=== PATIENT | male | born 1950 | race Caucasian/White ===

== ENCOUNTER 2021-12-21 20:26 | Observation (INO) | payer MEDICARE, OTHER, SELFPAY ==
[2021-12-21] VITALS (13 sets, daily range): BP systolic 120–154; BP diastolic 69–88; PULSE 55–74; RESP 18–27; TEMP 36.2; O2SAT 92–95; BMI 27.3
--- NOTE | 2021-12-21 20:36 | DI.RAD.S_ITS ---
PROCEDURE: XR RIBS RT MIN 3V W CXR 1V INDICATIONS: right lateral rib pain TECHNIQUE: 3 views of the right ribs were acquired, along with a single view chest. COMPARISON: None. FINDINGS: Surgical changes and devices: None. Bones and chest wall: No dislocations but there are multiple right lateral acute appearing posterolateral rib fractures, in addition to a scapular fracture previously identified on the right.. No suspicious bony lesions. Overlying soft tissues appear unremarkable. Lungs and pleura: No pleural effusions or pneumothorax. Lungs appear clear. Mediastinum: Mediastinal contours appear normal. Heart size is normal. IMPRESSION: Reduced inspiration on the right associated with acute chest wall trauma to include multiple adjacent right lateral and posterolateral rib fractures and also a previously documented acute scapular fracture that extends into the glenoid base. No pneumothorax associated. Dictated by: Khris Trimble M.D. on 12/21/2021 at 21:02 Approved by: Khris Trimble M.D. on 12/21/2021 at 21:03
--- NOTE | 2021-12-21 20:36 | DI.RAD.S_ITS ---
PROCEDURE: XR SHOULDER RT MIN 2V INDICATIONS: trauma, pain, decreased ROM TECHNIQUE: 2 views of the shoulder were acquired. COMPARISON: None. FINDINGS: Bones: No dislocations. There is a scapular body fracture that extends into the base of the glenoid. This is mildly displaced. It is also mildly comminuted. No suspicious bony lesions. Visualized ribs appear intact. Soft tissues: No suspicious soft tissue calcifications. IMPRESSION: Right scapular fracture, at the midbody and including extension into the base of the glenoid with only a mild degree of malalignment abnormality associated but there is mild comminution. Dictated by: Khris Trimble M.D. on 12/21/2021 at 21:00 Approved by: Khris Trimble M.D. on 12/21/2021 at 21:01
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
[2021-12-21] MEDS: TET,DIPH,PERTUSS(ACELL),VAC/PF 0.5 ML SYRINGE IM (21:09)
--- NOTE | 2021-12-21 21:14 | PC.NURSE ---
patient complains of pain in his right shoulder and chest. He states that the doctors don't give him medication that helps for pain. He was asked if He'd had been drinking today and he said yes. I told him that I would ask the doctor what we could give him for pain.
--- NOTE | 2021-12-21 21:19 | DI.CT.S_ITS ---
PROCEDURE: CT CHEST ABD PEL W CON INDICATIONS: trauma TECHNIQUE: After the administration of intravenous contrast, 5 mm thick sections acquired from the lung apices to the symphysis. 5 mm coronal and sagittal reformats were performed, with additional 7 mm MIP reformats through the lungs. For radiation dose reduction, the following was used: automated exposure control, adjustment of mA and/or kV according to patient size. COMPARISON: [facility], CR, XR RIBS RT MIN 3V W CXR 1V, 12/21/2021, 20:40. FINDINGS: Image quality: Excellent. CHEST: Lungs and pleura: No acute airspace opacities on the left but there is a mild degree of pulmonary contusion at the right posterior lung base. The patient has multiple associated right-sided lateral and posterolateral rib fractures. No significant pleural effusions or pneumothorax. Central and peripheral airways appear patent and normal in caliber. Mediastinum: Heart size is normal. No pericardial effusion. No mediastinal or hilar adenopathy by size criteria. Thoracic aorta and central pulmonary arteries are normal in size. Esophagus is normal in caliber. No hiatal hernia. Chest wall: No axillary or supraclavicular adenopathy by size criteria. Thyroid gland appears normal where well seen. Right-sided mid and lower chest lateral and posterolateral rib fractures were also previously well visualized by plain film imaging, and a fracture through the right scapular body and extending into the base of the right glenoid is again noted. ABDOMEN: Solid organs: Liver is mildly enlarged in size at 19.1 cm craniocaudad and shows a fatty infiltrated appearance without focal mass or evidence traumatic hepatic contusion or laceration. Gallbladder appears normal . Biliary system is non dilated. Pancreas enhances normally. Spleen is normal in size and enhancement. No adrenal nodules. Kidneys demonstrate normal size and enhancement, without hydronephrosis. Peritoneum and bowel: Bowel loops demonstrate normal wall thickness and caliber. No free fluid or air. Nodes and vessels: No retroperitoneal or mesenteric adenopathy by size criteria. Aorta and inferior vena cava are normal in size. Miscellaneous: No ventral hernias. PELVIS: Genitourinary: Bladder wall thickness is normal. Miscellaneous: No inguinal hernias or adenopathy. Bones: No suspicious bony lesions. No vertebral body compression fractures. IMPRESSION: Right-sided rib and scapular fractures as discussed no spine injury found. No pneumothorax found. Note is made of fatty infiltration prominent throughout the liver which is mildly enlarged. No visceral trauma seen. Dictated by: Khris Trimble M.D. on 12/21/2021 at 22:16 Approved by: Khris Trimble M.D. on 12/21/2021 at 22:21
[2021-12-21] MEDS: ONDANSETRON 4 MG/2 ML INJ IV (21:33)
[2021-12-21] MEDS: HYDROMORPHONE 0.5 MG INJ IV (21:33)
[2021-12-21 21:35] LABS: Add Manual Diff / Slide Review NO; Basophils Absolute Auto 0 /uL (0-100); Basophils Percent Auto 0.5 % (0-2); Eosinophils Absolute Auto 0 /uL (0-450); Eosinophils Percent Auto 0.6 % (2-4); Hematocrit 40.8 % (41-53); Hemoglobin 14.1 g/dL (13.5-17.5); Lymphocytes Absolute Auto 1100 /uL (1100-4500); Lymphocytes Percent Auto 14.6 % (25-40); Mean Corpuscular HGB Conc 34.5 % (30-36); Mean Corpuscular Hemoglobin 30.5 PG (26-34); Mean Corpuscular Volume 88.5 fL (80-100); Monocytes Absolute Auto 500 /uL (0-900); Monocytes Percent Auto 6.5 % (3-14); Neutrophils Absolute Auto 5600 /uL (1500-7000); Neutrophils Percent Auto 77.8 % (50-75); Platelet Count 230 X10^3/uL (150-400); Red Blood Cell Count 4.61 X10^6/uL (4.5-5.9); Red Cell Distribution Width 13.6 % (11.6-14.8); White Blood Cell Count 7.2 X10^3/uL (4.5-11.0)
[2021-12-21 21:58] LABS: Blood Urea Nitrogen 13 mg/dL (9-20); Calcium 8.4 mg/dL (8.4-10.2); Carbon Dioxide 24 mmol/L (22-32); Chloride 110 mmol/L (98-107); Estimated Glomerular Filt Rate > 60 mL/min (>60); Glucose 118 mg/dL (80-110); HEMOLYSIS 15 (0-50); Potassium 3.5 mmol/L (3.4-5.1); Sodium 143 mmol/L (137-145)
--- NOTE | 2021-12-21 23:03 | DI.CT.S_ITS ---
PROCEDURE: CT UE RT WO CON INDICATIONS: per ortho TECHNIQUE: Noncontrast 1-1.5 mm thick sections acquired from the acromioclavicular joint to the inferior scapula, with coronal and sagittal reformatting. COMPARISON: [facility], CR, XR SHOULDER RT MIN 2V, 12/21/2021, 20:40. FINDINGS: Image quality: Excellent. Bones: As was seen on plain film imaging earlier same day there is a mildly comminuted mildly displaced set of fractures involving the right scapular body and extending into the base of the glenoid. The glenoid itself appears intact. Soft tissues: There are nondisplaced proximal rim fractures involving the 2nd through 5th ribs and also mildly displaced several associated anterior rib fractures assist in this area, with a small amount of gas in [place] aided into the intercostal soft tissues but without appreciable pneumothorax. IMPRESSION: Right-sided scapular and glenoid base fractures as discussed in near anatomic alignment. Proximal nondisplaced 2nd through 5th right-sided rib fractures and several additional more anterior right-sided rib fractures are seen in the same area. A slight degree of intravasation of gas into the intercostal soft tissues is associated but no significant pneumothorax is found. Dictated by: Khris Trimble M.D. on 12/21/2021 at 23:47 Approved by: Khris Trimble M.D. on 12/21/2021 at 23:54
--- NOTE | 2021-12-21 23:03 | DI.CT.S_ITS ---
PROCEDURE: CT HEAD/BRAIN WO CON INDICATIONS: trauma TECHNIQUE: Noncontrast 4.5 mm thick angled axial sections acquired from the foramen magnum to the vertex, with coronal and sagittal reformats. For radiation dose reduction, the following was used: automated exposure control, adjustment of mA and/or kV according to patient size. COMPARISON: None. FINDINGS: Image quality: Excellent. CSF spaces: Basal cisterns are patent. No extra-axial fluid collections. The ventricles are symmetric in size and shape. Brain: No intracranial bleeds or masses. There is cerebral volume loss for age, with resultant ventricular and sulcal prominence. There are periventricular and deep white matter chronic small vessel ischemic changes. There is intracranial internal carotid artery atherosclerosis. Skull and face: Calvarium and visualized facial bones appear intact, without suspicious lesions. Sinuses: Visualized sinuses and mastoids are clear. IMPRESSION: No trauma found. Dictated by: Khris Trimble M.D. on 12/21/2021 at 23:54 Approved by: Khris Trimble M.D. on 12/21/2021 at 23:55
--- NOTE | 2021-12-21 23:03 | DI.CT.S_ITS ---
PROCEDURE: CT CERVICAL SPINE WO CON INDICATIONS: trauma TECHNIQUE: Noncontrast 3 mm thick sections acquired from the skull base to the T4 level. Sagittal and coronal reformats were then constructed. For radiation dose reduction, the following was used: automated exposure control, adjustment of mA and/or kV according to patient size. COMPARISON: None. FINDINGS: Image quality: Excellent. Bones: No fractures or dislocations. Visualized superior ribs are intact. Please refer to the dedicated scapula/chest wall CT performed same day for detailed discussion of right-sided rib and scapular fractures. Soft tissues: Prevertebral soft tissues are normal in thickness. No paravertebral hematomas. No apical pneumothoraces. IMPRESSION: No trauma to the osseous structures of the cervical spine is found. Normal alignment. Please also refer to the dedicated right chest/scapular CT for discussion right-sided rib and scapular fractures. Dictated by: Khris Trimble M.D. on 12/21/2021 at 23:55 Approved by: Khris Trimble M.D. on 12/21/2021 at 23:58
[2021-12-21] MEDS: fentaNYL 100 MCG/2 ML INJ 50 MCG IV (23:11)
--- NOTE | 2021-12-21 23:43 | PC.NURSE ---
pt ambulated to the restroom without assistance
[2021-12-21 23:59] LABS: COVID19 -Nasal RAPID Negative (Negative)
[2021-12-22] VITALS (8 sets, daily range): BP systolic 121–149; BP diastolic 68–81; PULSE 53–73; RESP 19–23; TEMP 36.8–37.1; O2SAT 92–95; BMI 27.4
[2021-12-22 00:11] LABS: Ethanol (ETOH) 114 mg/dL
[2021-12-22] MEDS: fentaNYL 100 MCG/2 ML INJ 50 MCG IV ×9 (01:00→12:46)
[2021-12-22] MEDS: SODIUM CHLORIDE 0.9% FLUSH 10 ML IV ×2 (08:38→20:00)
--- NOTE | 2021-12-22 09:15 | DI.RAD.S_ITS ---
PROCEDURE: XR CHEST 1V INDICATIONS: rib fractures TECHNIQUE: One view of the chest was acquired. COMPARISON: [facility], CT, CT CHEST ABD PEL W CON, 12/21/2021, 21:29. FINDINGS: Surgical changes and devices: None. Lungs and pleura: An incomplete inspiratory result is noted, causing a crowded appearance to the lung markings. No focal infiltrates are seen. No pneumothorax or significant pleural effusions are seen. Mediastinum: Mediastinal contours appear normal. Heart size is normal. Bones and chest wall: Several moderately displaced right-sided rib fractures are seen. Mild associated soft tissue gas can be seen. The known right scapular fracture is only faintly seen. Age-appropriate bony degenerative changes are seen. IMPRESSION: Moderately displaced right-sided rib fractures, with associated soft tissue gas. No associated pneumothorax is seen. There is faint visualization of the known right scapular fracture. Low lung volumes. Dictated by: Jose Manuel Newton M.D. on 12/22/2021 at 9:18 Approved by: Jose Manuel Newton M.D. on 12/22/2021 at 9:20
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
[2021-12-22] MEDS: HYDROCODONE/ACET 5/325 TABLET 2 TAB PO ×2 (14:23→18:03)
[2021-12-22] MEDS: IBUPROFEN 400 MG TABLET 800 MG PO (15:46)
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
[2021-12-23] MEDS: HYDROCODONE/ACET 5/325 TABLET 2 TAB PO ×4 (00:16→20:40)
[2021-12-23] MEDS: IBUPROFEN 400 MG TABLET 800 MG PO ×3 (00:16→20:41)
[2021-12-23 07:49] VITALS: BP 123/68; PULSE 42; RESP 17; TEMP 36.4; O2SAT 94
[2021-12-23] MEDS: SODIUM CHLORIDE 0.9% FLUSH 10 ML IV ×2 (08:53→20:42)
--- NOTE | 2021-12-23 11:28 | PC.NURSE ---
Pt has sling off of right arm, pt states, took it off and is fine without it. Pt educated about wearing sling and encouraged to wear it.
[2021-12-23 12:03] VITALS: BP 126/62; PULSE 51; RESP 17; TEMP 36.5; O2SAT 95
--- NOTE | 2021-12-23 14:40 | PM.PN.1 ---
Subjective Subjective Date Patient Seen: 12/23/21 Time Patient Seen: 14:40 Interval history: Feeling much better today. Pain is controlled with oral agents for the most part. He has not been up moving around much yet. Exam Vital Signs (past 8 hours): - 12/23/21 07:49 12/23/21 12:03 Temperature 97.6 F 97.7 F Pulse Rate 42 L 51 L Respiratory Rate 17 17 Blood Pressure 123/68 126/62 Pulse Oximetry 94 95 Oxygen Flow Rate 0 0 Oxygen Delivery Method Room Air Oxygen Flow Rate 0 Const General: comfortable Objective Labs Result Diagrams: 12/21/21 21:29 12/21/21 21:29 [facility] Social History household members: spouse Smoking Status: Never smoker Assessment & Plan Assessment and plan (1) Closed right scapular fracture: Qualifiers: Encounter type: initial encounter Scapula location: unspecified part of scapula Qualified Code(s): S42.101A - Fracture of unspecified part of scapula, right shoulder, initial encounter for closed fracture Status: Acute (2) Multiple fractures of ribs: Qualifiers: Encounter type: initial encounter Fracture type: closed Laterality: right Qualified Code(s): S22.41XA - Multiple fractures of ribs, right side, initial encounter for closed fracture Status: Acute Plan Plan to discharge home on oral agents tomorrow if he is able to get up and move around some more today. Time Spent With Patient Critical Care time: I spent a total of [] minutes of critical care time on this patient's care today; this time is exclusive of procedural time.
[2021-12-23 15:46] VITALS: BP 111/59; PULSE 48; RESP 16; TEMP 36.3; O2SAT 93
[2021-12-23 20:07] VITALS: BP 123/66; PULSE 55; RESP 17; TEMP 36.9; O2SAT 94
[2021-12-24 04:19] VITALS: BP 128/66; PULSE 57; RESP 17; TEMP 36.4; O2SAT 93
[2021-12-24 07:54] VITALS: BP 111/61; PULSE 50; RESP 16; TEMP 36.7; O2SAT 93
[2021-12-24] MEDS: HYDROCODONE/ACET 5/325 TABLET 2 TAB PO ×2 (07:58→13:03)
--- NOTE | 2021-12-24 10:22 | P.PN_ITS ---
Subjective Subjective Date Patient Seen: 12/24/21 Time Patient Seen: 10:22 Interval history: Feeling much better today. He was able to ambulate. Exam Vital Signs (past 8 hours): - 12/24/21 04:19 12/24/21 07:54 Temperature 97.6 F 98.0 F Pulse Rate 57 L 50 L Respiratory Rate 17 16 Blood Pressure 128/66 111/61 Pulse Oximetry 93 93 Oxygen Flow Rate 0 Oxygen Delivery Method Room Air Oxygen Flow Rate 0 Const General: No acute distress Resp Effort & Inspection: normal respiratory effort Objective Labs Result Diagrams: 12/21/21 21:29 12/21/21 21:29 [facility] Social History household members: spouse Smoking Status: Never smoker Assessment & Plan Assessment and plan (1) Closed right scapular fracture: Qualifiers: Encounter type: initial encounter Scapula location: unspecified part of scapula Qualified Code(s): S42.101A - Fracture of unspecified part of scapula, right shoulder, initial encounter for closed fracture Status: Acute (2) Multiple fractures of ribs: Qualifiers: Encounter type: initial encounter Fracture type: closed Laterality: right Qualified Code(s): S22.41XA - Multiple fractures of ribs, right side, initial encounter for closed fracture Status: Acute Plan Home today with [place] prescription. Can follow-up with Dr. Boggs for his scapu lar fracture. Time Spent With Patient Critical Care time: I spent a total of [] minutes of critical care time on this patient's care today; this time is exclusive of procedural time.
[2021-12-24 11:43] VITALS: BP 127/64; PULSE 51; RESP 17; TEMP 36.6; O2SAT 94
--- NOTE | 2021-12-24 13:09 | PC.NURSE ---
Pt received D/C orders. Sl D/c'd intact. Med prior to D/C for trip home Pt escorted by staff via W/C to waiting vehicle D/C in stable condition.
== END 2021-12-24 13:18 | disposition home or self-care (01) ==
LOC: ED 20:43 → AC 12-22 00:11
PROVIDERS: Admitting Provider Surgery; Emergency Provider Emergency Medicine; Visit Provider Surgery
DX: S22.41XA Multiple fractures of ribs, right side, initial encounter for closed fracture (principal); S42.111A Displaced fracture of body of scapula, right shoulder, initial encounter for closed fracture; V18.0XXA Pedal cycle driver injured in noncollision transport accident in nontraffic accident, initial encounter; Y93.55 Activity, bike riding; Z20.822 Contact with and (suspected) exposure to COVID-19; Z23 Encounter for immunization
CPT/HCPCS: 36415; 70450; 71045; 71101; 71260; 72125; 73030; 73200; 74177; 80048; 80320; 85025; 87635; 90471; 96374; 96375; 99224; 99225; 99284; 99291; 99292; C9803; G0378; 90715; J1170; J2405; J3010; Q9967

== ENCOUNTER → 2022-03-02 10:46 | Outpatient (CLI) | payer MEDICARE, OTHER, SELFPAY ==
[2021-12-22 03:03] VITALS: BMI 27.4
[2022-03-02 12:35] LABS: Add Manual Diff / Slide Review NO; Basophils Absolute Auto 0 /uL (0-100); Basophils Percent Auto 1.4 % (0-2); Eosinophils Absolute Auto 100 /uL (0-450); Eosinophils Percent Auto 2.8 % (2-4); Hematocrit 43.2 % (41-53); Hemoglobin 14.7 g/dL (13.5-17.5); Lymphocytes Absolute Auto 1100 /uL (1100-4500); Lymphocytes Percent Auto 34.8 % (25-40); Mean Corpuscular Hemoglobin 29.8 PG (26-34); Mean Corpuscular Volume 87.7 fL (80-100); Monocytes Absolute Auto 300 /uL (0-900); Monocytes Percent Auto 9.7 % (3-14); Neutrophils Absolute Auto 1600 /uL (1500-7000); Neutrophils Percent Auto 51.3 % (50-75); Platelet Count 244 X10^3/uL (150-400); Red Blood Cell Count 4.93 X10^6/uL (4.5-5.9); Red Cell Distribution Width 13.8 % (11.6-14.8)
[2022-03-02 14:00] LABS: Alanine Aminotransferase 25 IU/L (<50); Albumin 4.4 g/dL (3.5-5.0); Albumin Globulin Ratio 1.5 (1.0-2.8); Alkaline Phosphatase 74 U/L (38-126); Aspartate Aminotransferase 32 IU/L (17-59); BUN Creatinine Ratio 15.8 (6-22); Bilirubin Total 1.2 mg/dL (0.2-1.3); Blood Urea Nitrogen 12 mg/dL (9-20); Calcium 9.5 mg/dL (8.4-10.2); Carbon Dioxide 29 mmol/L (22-32); Chloride 100 mmol/L (98-107); Cholesterol 249 mg/dL (140-199); Estimated Glomerular Filt Rate > 60 mL/min (>60); Glucose 92 mg/dL (80-110); HDL Cholesterol 65 mg/dL (40-60); HEMOLYSIS < 15 (0-50); LDL Cholesterol Calculated 161 mg/dL (<100); Potassium 4.4 mmol/L (3.4-5.1); Sodium 138 mmol/L (137-145); Total Protein 7.4 g/dL (6.3-8.2); Triglycerides 113 mg/dL (35-150)
[2022-03-02 14:23] LABS: Prostate Specific Antigen Scrn 1.15 ng/mL (0.1-4.0)
[2022-03-02 14:25] LABS: TSH w/ Reflex to FT4 2.32 uIU/mL (0.47-4.68)
== END ==
PROVIDERS: PCP Family Medicine; Referring Provider Family Medicine; Visit Provider Family Medicine
DX: Z00.00 Encounter for general adult medical examination without abnormal findings (principal); Z12.5 Encounter for screening for malignant neoplasm of prostate
CPT/HCPCS: 36415; 80053; 80061; 84443; 85025; G0103

== ENCOUNTER → 2022-09-03 15:08 | Outpatient (CLI) | payer MEDICARE, OTHER, SELFPAY ==
[2021-12-22 03:03] VITALS: BMI 27.4
[2022-09-03 15:45] LABS: Alanine Aminotransferase 30 IU/L (<50); Albumin 4.5 g/dL (3.5-5.0); Albumin Globulin Ratio 1.6 (1.0-2.8); Alkaline Phosphatase 53 U/L (38-126); Aspartate Aminotransferase 37 IU/L (17-59); BUN Creatinine Ratio 18.2 (6-22); Bilirubin Total 0.9 mg/dL (0.2-1.3); Blood Urea Nitrogen 14 mg/dL (9-20); Calcium 9.2 mg/dL (8.4-10.2); Carbon Dioxide 25 mmol/L (22-32); Chloride 103 mmol/L (98-107); Cholesterol 243 mg/dL (140-199); Estimated Glomerular Filt Rate > 60 mL/min (>60); Globulin 2.9 g/dL (1.7-4.1); Glucose 94 mg/dL (80-110); HDL Cholesterol 70 mg/dL (40-60); HEMOLYSIS < 15 (0-50); LDL Cholesterol Calculated 159 mg/dL (<100); Potassium 3.9 mmol/L (3.4-5.1); Sodium 138 mmol/L (137-145); Total Protein 7.4 g/dL (6.3-8.2); Triglycerides 71 mg/dL (35-150)
== END ==
PROVIDERS: PCP Family Medicine; Referring Provider Family Medicine; Visit Provider Family Medicine
DX: E78.00 Pure hypercholesterolemia, unspecified (principal)
CPT/HCPCS: 36415; 80053; 80061

== ENCOUNTER → 2024-03-10 12:14 | Outpatient (CLI) | payer MEDICARE, OTHER, SELFPAY ==
[2021-12-22 03:03] VITALS: BMI 27.4
[2024-03-10 13:08] LABS: Add Manual Diff / Slide Review NO; Basophils Absolute Auto 0 /uL (0-100); Eosinophils Absolute Auto 100 /uL (0-450); Eosinophils Percent Auto 3.1 % (2-4); Hematocrit 42.1 % (41-53); Hemoglobin 14.5 g/dL (13.5-17.5); Lymphocytes Absolute Auto 1200 /uL (1100-4500); Lymphocytes Percent Auto 32.7 % (25-40); Mean Corpuscular HGB Conc 34.3 % (30-36); Mean Corpuscular Hemoglobin 30.5 PG (26-34); Monocytes Absolute Auto 400 /uL (0-900); Monocytes Percent Auto 10.3 % (3-14); Neutrophils Absolute Auto 1900 /uL (1500-7000); Neutrophils Percent Auto 52.9 % (50-75); Platelet Count 271 X10^3/uL (150-400); Red Blood Cell Count 4.74 X10^6/uL (4.5-5.9); Red Cell Distribution Width 13.4 % (11.6-14.8); White Blood Cell Count 3.6 X10^3/uL (4.5-11.0)
[2024-03-10 13:37] LABS: Alanine Aminotransferase 27 IU/L (<50); Albumin 4.3 g/dL (3.5-5.0); Albumin Globulin Ratio 1.9 (1.0-2.8); Alkaline Phosphatase 51 U/L (38-126); Aspartate Aminotransferase 34 IU/L (17-59); BUN Creatinine Ratio 17.7 (6-22); Bilirubin Total 0.7 mg/dL (0.2-1.3); Blood Urea Nitrogen 17 mg/dL (9-20); Calcium 9.4 mg/dL (8.4-10.2); Carbon Dioxide 26 mmol/L (22-32); Chloride 104 mmol/L (98-107); Cholesterol 227 mg/dL (140-199); Estimated Glomerular Filt Rate > 60 mL/min (>60); Globulin 2.3 g/dL (1.7-4.1); Glucose 106 mg/dL (80-110); HDL Cholesterol 72 mg/dL (40-60); HEMOLYSIS < 15 (0-50); LDL Cholesterol Calculated 132 mg/dL (<100); Sodium 137 mmol/L (137-145); Total Protein 6.6 g/dL (6.3-8.2); Triglycerides 116 mg/dL (35-150)
[2024-03-10 14:02] LABS: Prostate Specific Antigen Scrn 1.05 ng/mL (0.1-4.0)
== END ==
LOC: LAB 12:15
PROVIDERS: PCP Family Medicine; Referring Provider Family Medicine; Visit Provider Family Medicine
DX: Z00.00 Encounter for general adult medical examination without abnormal findings (principal); E78.5 Hyperlipidemia, unspecified; Z12.5 Encounter for screening for malignant neoplasm of prostate; M19.90 Unspecified osteoarthritis, unspecified site; E78.00 Pure hypercholesterolemia, unspecified; M19.011 Primary osteoarthritis, right shoulder; Z86.0100 Personal history of colon polyps, unspecified; L40.9 Psoriasis, unspecified
CPT/HCPCS: 36415; 80053; 80061; 85025; G0103

== ENCOUNTER → 2024-07-18 10:44 | Outpatient (CLI) | payer MEDICARE, OTHER, SELFPAY ==
[2021-12-22 03:03] VITALS: BMI 27.4
--- NOTE | 2024-07-18 10:45 | DI.RAD.S_ITS ---
PROCEDURE: XR LUMBAR SPINE 2-3V INDICATIONS: eval back pain TECHNIQUE: 3 views of the lumbar spine were acquired. COMPARISON: None. FINDINGS: Bones: 5 [id number] vertebrae are present. Minimal levoscoliosis of the lumbar spine has its apex about the L3 body. There is otherwise normal bony alignment. Multilevel anterior osteophytosis noted in addition to moderate L4-L5 and L5-S1 disc height loss with adjacent endplate sclerosis. No vertebral body compression fractures. No suspicious bony lesions. Soft tissues: Overlying bowel gas pattern is normal. No suspicious soft tissue calcifications. IMPRESSION: Mild degenerative change of the lumbar spine without evidence of acute bony abnormality. Dictated by: Rivas Alvarez M.D. on 07/19/2024 at 3:36 Approved by: Rivas Alvarez M.D. on 07/19/2024 at 3:37
--- NOTE | 2024-07-18 10:45 | DI.RAD.S_ITS ---
PROCEDURE: XR HIP W PEL IF DONE RT 2V INDICATIONS: eval hip pain TECHNIQUE: AP pelvis with lateral view(s) of the right hip(s). COMPARISON: None. FINDINGS: Bones: No fractures or dislocations. 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 Pelvic ring appears intact. No suspicious bony lesions. Soft tissues: The visualized bowel gas pattern is normal. No suspicious soft tissue calcifications. IMPRESSION: Degenerative change of the right hip without evidence of acute bony abnormality. Dictated by: Rivas Alvarez M.D. on 07/19/2024 at 3:38 Approved by: Rivas Alvarez M.D. on 07/19/2024 at 3:38
== END ==
PROVIDERS: PCP Family Medicine; Referring Provider Family Medicine; Visit Provider Family Medicine
DX: M47.816 Spondylosis without myelopathy or radiculopathy, lumbar region (principal); M54.9 Dorsalgia, unspecified
CPT/HCPCS: 72100; 73502